=== PATIENT | female | born 1965 | race Native Hawaiian/Other Pacific Islander ===

== ENCOUNTER 2020-03-23 09:44 | Day surgery (SDC) | payer BC | END 2020-03-24 13:30 | disposition home or self-care (01) | LOC: OR 09:44 → EDSTATUS 14:00 → OR 14:00 | PROVIDERS: ATTEND Internal Medicine Gastroenterology | PROC: 0DBF8ZZ Excision of Right Large Intestine, Via Natural or Artificial Opening Endoscopic (ICD-10-PCS; principal; 2020-03-23) | DX: K63.3 Ulcer of intestine (principal); K56.699 Other intestinal obstruction unspecified as to partial versus complete obstruction; K64.8 Other hemorrhoids; K50.114 Crohn's disease of large intestine with abscess; Z12.11 Encounter for screening for malignant neoplasm of colon; K52.89 Other specified noninfective gastroenteritis and colitis; K63.89 Other specified diseases of intestine | CPT/HCPCS: J2704 ==

== ENCOUNTER 2020-11-21 08:49 | Outpatient (CLI) | payer BC | END 2020-11-21 19:24 | disposition home or self-care (01) | LOC: RAD 08:49 | PROVIDERS: ATTEND Physician Assistant | DX: M25.561 Pain in right knee (principal) ==

== ENCOUNTER 2021-08-09 15:22 | Outpatient (CLI) | payer BC | END 2021-08-09 19:13 | disposition home or self-care (01) | LOC: MAMMO 15:22 | PROVIDERS: ATTEND Nurse Practitioner Family | DX: Z12.31 Encounter for screening mammogram for malignant neoplasm of breast (principal) ==

== ENCOUNTER 2021-11-10 14:03 | Outpatient (CLI) | payer BC | END 2021-11-10 20:01 | disposition home or self-care (01) | LOC: MRI 14:03 | PROVIDERS: ATTEND Optometrist | DX: H40.1132 Primary open-angle glaucoma, bilateral, moderate stage (principal); H47.20 Unspecified optic atrophy; H40.053 Ocular hypertension, bilateral | CPT/HCPCS: A9576 ==

== ENCOUNTER 2022-10-12 14:03 | Outpatient (CLI) | payer BC | END 2022-10-12 19:29 | disposition home or self-care (01) | LOC: MAMMO 14:03 | PROVIDERS: ATTEND Family Medicine | DX: Z12.31 Encounter for screening mammogram for malignant neoplasm of breast (principal) ==

== ENCOUNTER 2022-10-29 09:15 | Outpatient (CLI) | payer BC | END 2022-10-29 19:20 | disposition home or self-care (01) | LOC: MAMMO 09:15 | PROVIDERS: ATTEND Nurse Practitioner Family | DX: R92.2 Inconclusive mammogram (principal) ==